=== PATIENT | male | born 1975 | race American Indian/Alaskan Native ===

== ENCOUNTER 2021-07-29 08:11 | Emergency (ER) | payer SELFPAY ==
--- NOTE | 2021-07-29 08:39 | Emergency Department Report ---
History of Present Illness - General Chief Complaint: Overdose Stated Complaint: OD Time Seen by Provider: 07/29/21 08:36 Source: patient, EMS Mode of arrival: Stretcher Limitations: Altered Mental Status - History of Present Illness Initial Comments: Chief complaint: Overdose HPI: This 45-year-old male with history of PTSD presents via EMS for drug ov erdose. Patient smoked marijuana and drank embalming fluid according to family's report. Patient brought to the emergency department via EMS. Patient is slightly dazed. Otherwise he denies any complaints. He states that he is surprised that he is in hospital. Family also suspects. that the fluid contained GHB. He denies suicidal homicidal ideation MD Complaint: accidental overdose -: This morning How Overdose Was Discovered: family/friend present Context: Accidental Overdose: wanted to get high Treatments Prior to Arrival: none - Related Data Allergies Allergy/AdvReac Type Severity Reaction Status Date / Time No Known Allergies Allergy Verified 07/29/21 08:16 ED Review of Systems ROS: Stated complaint: OD Other details as noted in HPI Comment: All other systems reviewed and negative Constitutional: denies: chills, fever Respiratory: denies: cough, shortness of breath Cardiovascular: denies: chest pain Psychiatric: denies: depression, auditory hallucinations, visual hallucinations, homicidal thoughts ED Past Medical Hx - Past Medical History Previous Medical History?: No - Surgical History Past Surgical History?: No - Family History Family history: hypertension - Social History Smoking Status: Current Every Day Smoker Substance Use Type: Alcohol, Marijuana ED Physical Exam - General Limitations: Altered Mental Status General appearance: alert, in no apparent distress - Head Head exam: Present: atraumatic, normocephalic - Eye Eye exam: Present: normal appearance - ENT ENT exam: Present: mucous membranes moist - Neck Neck exam: Present: normal inspection, full ROM - Respiratory Respiratory exam: Present: normal lung sounds bilaterally. Absent: respiratory distress, wheezes, rales, rhonchi - Cardiovascular Cardiovascular Exam: Present: regular rate, normal rhythm, normal heart sounds. Absent: systolic murmur, diastolic murmur, rubs, gallop - GI/Abdominal GI/Abdominal exam: Present: soft, normal bowel sounds. Absent: distended, tenderness, guarding, rebound, rigid - Rectal Rectal exam: Present: deferred - Extremities Exam Extremities exam: Present: normal inspection - Neurological Exam Neurological exam: Present: alert, oriented X3 - Psychiatric Psychiatric exam: Present: normal affect, normal mood - Skin Skin exam: Present: warm, dry, intact, normal color. Absent: rash ED Course Vital Signs 07/29/21 07/29/21 07/29/21 08:17 08:25 08:31 Temperature 97.4 F L Pulse Rate 59 L 57 L Respiratory 11 L 11 L Rate Blood Pressure 133/88 O2 Sat by Pulse 100 100 Oximetry 07/29/21 07/29/21 07/29/21 08:45 09:01 09:15 Temperature Pulse Rate 56 L 59 L 66 Respiratory 10 L 9 L 13 Rate Blood Pressure 134/91 139/92 147/99 O2 Sat by Pulse 100 100 100 Oximetry 07/29/21 07/29/21 09:31 09:45 Temperature Pulse Rate 68 61 Respiratory 11 L 10 L Rate Blood Pressure 147/99 145/100 O2 Sat by Pulse 100 100 Oximetry ED Medical Decision Making - Medical Decision Making Unintentional drug overdose: Patient has history of PTSD. He admits to depression. He repeatedly denied suicidal ideation. He has mild chronic back pain. He received Tylenol for pain relief. He is discharged home. Critical care attestation.: If time is entered above; I have spent that time in minutes in the direct care of this critically ill patient, excluding procedure time. ED Disposition Clinical Impression: Accidental overdose Disposition: 01 HOME / SELF CARE / HOMELESS Is pt being admited?: No Does the pt Need Aspirin: No Condition: Stable Instructions: Managing Post-Traumatic Stress Disorder Referrals: CYNHTIA RENEE MD [Staff Physician] - 3-5 Days
[2021-07-29] MEDS ORDERED: ACETAMINOPHEN 500 MG TAB PO ONE (10:14)
[2021-07-29] MEDS ORDERED: ACETAMINOPHEN 325 MG TAB PO ONE (10:15)
[2021-07-29 10:36] VITALS: BP 155/104
== END 2021-07-29 10:37 | disposition home or self-care (01) ==
LOC: ED 08:11
DX: T50.901A Poisoning by unspecified drugs, medicaments and biological substances, accidental (unintentional), initial encounter (principal); Y92.89 Other specified places as the place of occurrence of the external cause; F17.200 Nicotine dependence, unspecified, uncomplicated; F10.20 Alcohol dependence, uncomplicated; F12.90 Cannabis use, unspecified, uncomplicated
CPT/HCPCS: 99283